=== PATIENT | female | born 1965 | race Caucasian/White ===

== ENCOUNTER 2016-09-02 13:18 | Emergency (ER) | payer BC, OTHER ==
[2016-09-02] MEDS ORDERED: NS 1,000 ML IV ONE (13:20)
--- NOTE | 2016-09-02 13:22 | UCPHY ---
H & P Patient Type: New HPI/ROS: CHIEF COMPLAINT: Epistaxis. HISTORY OF PRESENT ILLNESS: The patient is a 51-year-old female with a history of thrombocytopenia who presents with epistaxis that began 3 hours ago. Her last nosebleed was a week ago and stopped on its own. She denies lightheadedness or dizziness while seated but does get dizzy when she stands up. No other complaints at this time. She has frequent nose bleeds. [place] 47167--efrs was last week. She has had a full hematologic workup with no clear etiology for her thrombocytopenia discovered. REVIEW OF SYSTEMS: A ten point review of systems was performed and is negative with the exception of the items mentioned in the HPI. 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 She is . - Physical Exam Exam: General Appearance: Alert. Vital signs reviewed. 169/127 initially. Eyes: Pupils equal and round, no conjunctival injection, no discharge. Anicteric. ENT, Mouth: Mucous membranes are moist, no oropharyngeal erythema or edema. Bleeding from the right nostril, nasal clamp in place but bleeding persists. She is spitting blood into a cup and blood is draining into a cup from her right naris. Respiratory: Lungs are clear to auscultation; no wheezes, rales, or rhonchi. Cardiovascular: Tachycardic. Gastrointestinal: Abdomen is soft and nontender. Skin: Warm and dry, no rashes on exposed skin, normal color. Neurological: Alert and oriented. Moving all four extremities easily and equally. Psychiatric: Normal affect. Constitutional: Initial Vital Signs Temperature (C) 36.6 C 09/02/16 13:35 Heart Rate 113 H 09/02/16 13:35 Respiratory Rate 20 09/02/16 13:35 Blood Pressure 169/127 H 09/02/16 13:35 O2 Sat (%) 98 09/02/16 13:35 O2 Delivery Mode Room Air Allergies/Adverse Reactions: No Known Allergies Allergy (Unverified 09/02/16 13:34) Home Medications: Medication Instructions Recorded Albuterol 5 mg/ml INH 09/02/16 Cephalexin [Keflex] 500 mg PO TID #20 cap 09/02/16 Medical Decision Making Procedures: Procedure: Epistaxis control. Indication: nosebleed not controlled by direct pressure. Risks, benefits, alternatives discussed with patient and consent obtained. The right nares was anesthetized with cocaine-soaked cotton-ball. The epistaxis was diffuse, no specific bleeding site could be identified. The patient was treated with packing--anterior rhino stat. Following the procedure the patient was re- examined and the bleeding was well controlled. The patient tolerated the procedure well. The procedure was performed by myself. ED Course/Re-evaluation: This patient is a 51-year-old female with a history of thrombocytopenia presenting right naris epistaxis that began 3 hours prior to arrival. On arrival she was actively bleeding. An epistaxis clip was placed on her nose and the epistaxis kit was prepped including Afrin, silver nitrate, and liquid cocaine. She was tachycardic on arrival at 120 and hypertensive at 169/127. An IV was established and blood work ordered. The clip was removed and I placed a cocaine-soaked cotton ball in the patient's nares. After 10 minutes the cotton ball was removed from the right naris and suction was applied. I placed an inflatable packing, anterior rhino stat, in the right naris and inflated it.. The left naris was then suctioned and cleaned. Labs have been ordered including CBC and COAGs. Repeat blood pressure is 122/71. I reviewed the patient's laboratory studies. Platelets are low at 61 but this is actually up from her previous platelet count of 51 five days ago and the highest platelet count she has had since 2014. H&H is normal. PT and INR negative. She was serially evaluated. Bleeding was controlled with a nasal packing. She will be discharged home to follow up with Ear, nose, and throat within the next 3 days. She is being placed on Keflex prophylactically. She is advised to have her blood pressure recheck by her primary care physician. Differential Diagnosis: I considered a differential diagnosis that includes but is not limited to nasal trauma, dry air, uncontrolled hypertension, and coagulopathy--medication induced or otherwise. - Data Points Laboratory Results: Laboratory Results 09/02/16 13:50 09/02/16 09/02/16 13:50 13:50 WBC 9.97 10^3/uL H 10^3/uL (3.80-9.50) RBC 4.50 10^6/uL 10^6/uL (4.18-5.33) Hgb 13.0 g/dL g/dL (12.6-16.3) Hct 38.1 % % (38.0-47.0) MCV 84.7 fL fL (81.5-99.8) MCH 28.9 pg pg (27.9-34.1) MCHC 34.1 g/dL g/dL (32.4-36.7) RDW 12.3 % % (11.5-15.2) Plt Count 61 10^3/uL L 10^3/uL (150-400) MPV 13.0 fL H fL (8.7-11.7) Neut % (Auto) 66.8 % % (39.3-74.2) Lymph % (Auto) 25.3 % % (15.0-45.0) [place] % (Auto) 6.2 % % (4.5-13.0) Eos % (Auto) 0.7 % % (0.6-7.6) Baso % (Auto) 0.7 % % (0.3-1.7) Nucleat RBC Rel Count 0.0 % % (0.0-0.2) Absolute Neuts (auto) 6.66 10^3/uL H 10^3/uL (1.70-6.50) Absolute Lymphs (auto) 2.52 10^3/uL 10^3/uL (1.00-3.00) Absolute Monos (auto) 0.62 10^3/uL 10^3/uL (0.30-0.80) Absolute Eos (auto) 0.07 10^3/uL 10^3/uL (0.03-0.40) Absolute Basos (auto) 0.07 10^3/uL 10^3/uL (0.02-0.10) Absolute Nucleated RBC 0.00 10^3/uL 10^3/uL (0-0.01) Immature Gran % 0.3 % % (0.0-1.1) Immature Gran # 0.03 10^3/uL 10^3/uL (0.00-0.10) PT 12.2 SEC SEC (12.0-15.0) INR 0.93 (0.83-1.16) Medications Given: Discontinued Medications Cocaine HCl (Cocaine Hcl) 1 tong TP EDNOW ONE Stop: 09/02/16 13:41 Last Admin: 09/02/16 13:45 Dose: 1 tong Oxymetazoline HCl (Afrin Nasal [place]) 2 sprays EACHNARE EDNOW ONE Stop: 09/02/16 13:41 Last Admin: 09/02/16 13:45 Dose: 2 sprays Silver Nitrate/Potassium Nitrate (Silver Nitrate Applicator) 1 each TP EDNOW ONE Stop: 09/02/16 13:46 Last Admin: 09/02/16 13:55 Dose: 1 each Departure - Departure Disposition: Home, Routine, Self-Care Clinical Impression: Epistaxis Condition: Good Instructions: Nosebleed (ED) Additional Instructions: Call Denise Lawrence, ENT, tomorrow to set up a follow up appointment. Let her know that you have nasal packing in place. She will set up an appointment for you to come to the office to have the packing removed. Make sure she knows about your low platelets. The packing should remain in place. Take the Keflex, antibiotic, three times daily, as prescribed. Take your first dose this evening. As we discussed, you had high blood pressure while you were at Urgent Care. You should have this rechecked by your primary care physician. Return for uncontrollable bleeding, lightheadedness, dizziness, syncope, pain, or other serious worsening of condition. Referrals: Denise Lawrence PA [Physician Sanforizer] - As per Instructions Prescriptions: Cephalexin [Keflex] 500 mg PO TID #20 cap - PQRS PQRS Measurement: Does not apply Report Scribed for: Chuyita Mckeon Report Scribed by: Chi Pride Date of Report: 09/02/16 Time of Report: 13:28 Physician Review and Approval Statement: 09/02/16 13:22 Portions of this note were transcribed by the medical review coordinator. I, Dr. Chuyita Mckeon, personally performed the history, physical exam, and medical decision- making; and confirmed the accuracy of the information in the transcribed note.
[2016-09-02] MEDS ORDERED: COCAINE HCL 4% 4 ML BTL TP ONE ×2 (13:25→13:40)
[2016-09-02] MEDS ORDERED: OXYMETAZOLINE 30 ML NASAL SPRAY ONE (13:25)
[2016-09-02] MEDS ORDERED: SILVER NITRATE APPLICATOR 1 APPL TP ONE ×2 (13:31→13:45)
[2016-09-02 13:36] VITALS: TEMP 97.9
[2016-09-02] MEDS ORDERED: OXYMETAZOLINE 30 ML NASAL SPRAY EACHNARE ONE (13:40)
[2016-09-02 14:02] LABS: % IMMATURE GRANULYOCYTES 0.3 % (0.0-1.1); ABSOLUTE IMMATURE GRANULOCYTES 0.03 10^3/uL (0.00-0.10); ADD DIFF? NO; ADD MORPH? NO; ADD SCAN? NO; ATYPICAL LYMPHOCYTE FLAG 50 (0-99); FRAGMENT RBC FLAG 0 (0-99); HEMATOCRIT 38.1 % (38.0-47.0); LEFT SHIFT FLG 0 (0-99); LIPEMIA HEMOLYSIS FLAG 90 (0-99); MEAN CELL HEMOGLOBIN 28.9 pg (27.9-34.1); MEAN CELL HEMOGLOBIN CONCENTR. 34.1 g/dL (32.4-36.7); MEAN CELL VOLUME 84.7 fL (81.5-99.8); PLATELET CLUMPS FLAG 10 (0-99); PLATELET COUNT 61 10^3/uL (150-400); RED CELL DISTRIBUTION WIDTH 12.3 % (11.5-15.2)
[2016-09-02 14:18] LABS: INR 0.93 (0.83-1.16); PROTIME(PATIENT) 12.2 SEC (12.0-15.0)
[2016-09-02 15:58] VITALS: BP 116/76; PULSE 102; RESP 16; O2SAT 96
== END 2016-09-02 15:45 | disposition home or self-care (01) ==
LOC: CED 13:18
PROC: 2Y41X5Z Packing of Nasal Region using Packing Material (ICD-10-PCS; principal; 2016-09-02)
DX: R04.0 Epistaxis (principal); D69.6 Thrombocytopenia, unspecified
CPT/HCPCS: 30901-PO; 85025-PO; 85610-PO; 96360-PO; 99204-PO; G0463-PO